=== PATIENT | female | born 1970 | race Caucasian/White ===

== ENCOUNTER 2019-02-03 10:32 | Emergency (ER) | payer BC ==
[~2019-02-03] VITALS: Ht 157.5 cm; Wt 60.3 kg
[2019-02-03 10:37] VITALS: Ht 157.5 cm; Wt 60.3 kg
[2019-02-03 11:59] LABS: CALCIUM 8.5 mg/dL (8.5-10.1); CHLORIDE SERUM 105 mmol/L (98-107); CREATININE SERUM 0.5 mg/dL (0.6-1.0); GFR1 > 60 mL/min; GLUCOSE SERUM 101 mg/dL (74-106); POTASSIUM SERUM 4.4 mmol/L (3.5-5.1); SODIUM SERUM 139 mmol/L (136-145)
[2019-02-03 12:10] LABS: ALBUMIN 3.7 g/dL (3.4-5.0); ALKALINE PHOSPHATASE 73 U/L (46-116); ALT/SGPT 21 U/L (14-59); AST/SGOT 18 U/L (15-37); BILIRUBIN TOTAL 0.4 mg/dL (0.20-1.00); CHOLESTEROL 194 mg/dL (<200); LIPASE 164 IU/L (73-393); T4(THYROXINE) 9.5 ug/dL (4.7-13.3); TOTAL PROTEIN, SERUM 7.3 g/dL (6.4-8.2)
[2019-02-03 12:13] LABS: HDL CHOLESTEROL 68 mg/dL (40-60)
[2019-02-03 12:18] LABS: BASOPHIL % 0.8 % (0-2); PLATELET COUNT 353 x10^3mcL (130-400); RED CELL DISTRIBUTION WIDTH 16.1 % (11.5-14.5)
[2019-02-03 12:48] LABS: AMPHETAMINE QUAL UR NONE DETECTED (See below)
[2019-02-03 13:44] VITALS: BP 140/81
[2019-02-03 14:27] LABS: UA SPECIFIC GRAVITY 1.015 (1.005-1.035)
[2019-02-03 14:28] LABS: microscopic required? YES; urine erythrocyte 2+ (NEGATIVE)
== END 2019-02-03 14:12 | disposition home or self-care (01) ==
LOC: ED 10:32
PROVIDERS: Emergency Medicine
DX: R53.1 Weakness (principal); M54.6 Pain in thoracic spine; Z98.890 Other specified postprocedural states
CPT/HCPCS: 36415; 82962; G0480